=== PATIENT | male | born 1965 | race Caucasian/White ===

== ENCOUNTER 2025-04-30 15:47 | Outpatient (CLI) | payer OTHER, SELFPAY ==
--- NOTE | ~2025-04-30 | XR_ITS ---
XR hip LT min 2V 04/30/2025 16:16 Indication: Increasing left hip pain Procedure: 2 views left hip Comparison: No prior studies for comparison. Findings: There is osteoarthritis of the left hip with small loose body lateral to the joint space. No acute fracture or traumatic malalignment. No soft tissue abnormality. No foreign bodies. Impression: 1: Mild-moderate osteoarthritis of the left hip. Reviewed, dictated and finalized at location O. TING TECHNICIAN Impression: 1: Mild-moderate osteoarthritis of the left hip.
--- NOTE | ~2025-04-30 | XR_ITS ---
XR hip RT min 2V 04/30/2025 16:16 Indication: Right hip pain Procedure: 2 views right hip Comparison: No prior studies for comparison. Findings: There is mild-moderate osteoarthritis of the right hip. No fracture, subluxation or dislocation. No significant soft tissue abnormality. No foreign body. Impression: 1: Mild-moderate osteoarthritis of the right hip. Reviewed, dictated and finalized at location O. SERVICE MANAGER Impression: 1: Mild-moderate osteoarthritis of the right hip.
--- OUTSIDE RECORDS SUMMARY | 2025-04-30 15:49 | XMS_ITS | Clinical Summary ---
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
--- OUTSIDE RECORDS SUMMARY | 2025-04-30 15:49 | XMS_ITS | Clinical Summary ---
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 Gender Identity Not on file Sexual Orientation Not on file Plan of Treatment Health Maintenance Due Date Last Done Comments Hepatitis C Virus (HCV) Screening 1965 TdaP Immunization 1965 Hepatitis B Immunization (1 of 3 - 19+ 3-dose series) 08/30/1986 Cologuard 08/30/2012 Colonoscopy 08/30/2012 Colorectal Cancer Screening 08/30/2012 Immunochemical Fecal Occult Blood 08/30/2012 Pneumococcal Immunization (5 0+ years) (1 of 1 - PCV) 08/30/2017 Zoster Immunization (1 of 2) 08/30/2017 Influenza Immunization (#1) 2025 SARS-COV-2 Immunization (1 - season) 2025 Respiratory Syncytial Virus (RSV) Immunization (Adult) (1 - 1-dose 75+ series) 08/30/2042 Human Papillomavirus (HPV) Immunization Aged Out No longer eligible b ased on patient's age to complete this topic Meningococcal Immunization (ACWY) Aged Out No longer eligible based on patient's age to complete this topic Rotavirus Immunization Aged Out No lo nger eligible based on patient's age to complete this topic
--- OUTSIDE RECORDS SUMMARY | 2025-04-30 15:49 | XMS_ITS | Clinical Summary ---
Author Organization [facility] Address [address] [place] [id number] Care Team Providers Care Workforce Consultant Name Role Phone Philomena Rios MD Primary Care Provider [phone] Medications No known medications Active Problems Problem Noted Date Diagnosed Date S/P shoulder surgery 06/01/2023 Social History Tobacco Use Types Packs/Day Years Used Date Smoking Tobacco: Never Assessed Sex and Gender Information Value Date Recorded Sex Assigned at Not on file Legal Sex Male 7:50 AM CDT Gender Identity Not on file Sexual Orientation Not on file Plan of Treatment Health Maintenance Due Date Last Done Comments Colorectal Cancer Screening Colonoscopy (10 Years) 1967 Annual Physical 08/30/1970 Hepatitis C 08/30/1985 DTaP, Tdap and Td Vaccines ( 1 - Tdap) 08/30/1986 Hepatitis B Vaccines (1 of 3 - 19+ 3-dose series) 08/30/1986 Pneumococcal Vaccine: 50+ Years (1 of 1 - PCV) 08/30/2017 Zoster Vaccines (1 of 2) 08/30/2017 COVID-19 Vaccine (2024-2 6 season) 2025 Influenza Adult (#1) 2025 01/31/2022, 02/24/2019 Hepatitis A Vaccines Aged Out No long er eligible based on patient's age to complete this topic Meningococcal B Vaccine Aged Out No l onger eligible based on patient's age to complete this topic Meningococcal Vaccine Aged Out No gretchen mariely eligible based on patient's age to complete this topic RSV Immunizations Under 20 Months Aged Out No longer eligible b ased on patient's age to complete this topic Insurance [employer] Care Teams Workforce Consultant Relationship Specialty Start Date End Date Philomena Rios MD [address] [facility] [address] [place] [address] PCP - General FAMILY PRACTICE 12/23/21
--- OUTSIDE RECORDS SUMMARY | 2025-04-30 15:49 | XMS_ITS | Encounter Summary ---
Author Organization [facility] Care Team Providers Care Alligator Hunter Name Role Phone Uzair Rodriguez MD Primary Care Provider [phone] Uzair Rodriguez MD Primary Care Provider [phone] Encounter Details Date Type Department Care Team (Latest Contact Info) Description 09/06/2017 Orders Only [facility] CLINCON[facility] ProviderJames MD [address] [place] [id number] Social History Tobacco Use Types Packs/Day Years Used Date Smoking Tobacco: Never Assessed Sex and Gender Information Value Date Recorded Sex Assigned at Not on file 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 Historical Provider Final Res ult documented in this encounter Visit Diagnoses Not on filedocumented in this encounter Care Teams Alligator Hunter Relationship Specialty Start Date End Date Uzair Rodriguez MD PCP - General Family Medicine 08/25/18 04/09/25 Uzair Rodriguez MD [address] [facility] [address] [address] PCP - General Family Medicine 04/10/25 documented as of this encounter
== END 2025-04-30 15:48 | disposition home or self-care (01) ==
PROVIDERS: PCP Family Medicine; Visit Provider Physician Assistant Medical
DX: M16.0 Bilateral primary osteoarthritis of hip (principal)
CPT/HCPCS: 73502